=== PATIENT | male | born 1990 | race Caucasian/White ===

== ENCOUNTER 2017-08-07 22:30 | Emergency (ER) | payer SELFPAY ==
[~2017-08-07] VITALS: Ht 172.7 cm; Wt 68.2 kg
[2017-08-07 22:31] VITALS: BP 117/68
== END 2017-08-08 02:30 | disposition left against medical advice (07) ==
LOC: M ED 22:30
DX: L98.9 Disorder of the skin and subcutaneous tissue, unspecified (principal); Z53.21 Procedure and treatment not carried out due to patient leaving prior to being seen by health care provider

== ENCOUNTER 2017-12-19 14:53 | Emergency (ER) | payer SELFPAY ==
[2017-12-19] MEDS: AUGMENTIN 875 MG TAB PO (15:31)
[2017-12-19] MEDS: KETOROLAC 60 MG/2 ML VIAL (J1885) IM (15:31)
== END 2017-12-19 15:57 | disposition home or self-care (01) ==
LOC: M ED 14:53
DX: K05.319 Chronic periodontitis, localized, unspecified severity (principal); K02.9 Dental caries, unspecified; K05.10 Chronic gingivitis, plaque induced; Z79.899 Other long term (current) drug therapy
CPT/HCPCS: J1885

== ENCOUNTER 2018-11-25 19:54 | Emergency (ER) | payer OTHER, SELFPAY ==
[~2018-11-25] VITALS: Ht 172.7 cm; Wt 84.1 kg
[~2018-11-25 19:54] MED LIST: CLEO300C2 PO; IBUP-1114 PO; NAPR-837 PO; suboxone PO
[2018-11-25] MEDS ORDERED: AMPICILLIN SOD/SULBACTAM SOD 3 GM in D5W MINI-BAG PLUS 100 ML IV ONE (23:00)
[2018-11-25 23:20] LABS: HEMATOCRIT 43.8 % (42.0-52.0); HEMOGLOBIN 14.9 g/dl (13.5-17.5); MEAN CORPUSCULAR HEMOGLOBIN 30.3 pg (27.0-33.0); PLATELET COUNT, AUTOMATED 248 10^3/uL (150-450); RED BLOOD COUNT 4.92 10^6/uL (4.30-6.10)
[2018-11-25 23:40] LABS: BLOOD UREA NITROGEN 8 MG/DL (7-18); C REACTIVE PROTEIN QUANTITATIV 2.27 MG/DL (0.00-0.30); CALCIUM LEVEL 8.4 MG/DL (8.5-10.1); CARBON DIOXIDE LEVEL 26 MEQ/L (21-32); CHLORIDE LEVEL 106 MEQ/L (98-107); CREATININE FOR GFR 0.77 MG/DL (0.70-1.30); GLOMERULAR FILTRATION RATE > 60.0 (>60); GLUCOSE, FASTING 93 MG/DL (70-100); POTASSIUM SERUM 4.1 MEQ/L (3.5-5.1); SODIUM LEVEL 137 MEQ/L (136-145)
[2018-11-25] MEDS ORDERED: AUGM875T28 PO (23:47)
[2018-11-25 23:56] VITALS: BP 116/68
== END 2018-11-26 00:09 | disposition home or self-care (01) ==
LOC: M ED 19:54
DX: K04.7 Periapical abscess without sinus (principal); K02.9 Dental caries, unspecified; Z72.0 Tobacco use

== ENCOUNTER → 2020-05-12 | Outpatient (CLI) | payer OTHER ==
[~2020-05-12] MED LIST changes: +AUGM875T28 PO; +METH5TA PO; +POTA20TA6 PO
[2020-05-12 14:16] LABS: HEMATOCRIT 39.1 % (42.0-52.0); HEMOGLOBIN 13.3 g/dl (13.5-17.5); MEAN CORPUSCULAR HEMOGLOBIN 29.8 pg (27.0-33.0); MEAN CORPUSCULAR VOLUME 87.7 fl (80.0-96.0); PLATELET COUNT, AUTOMATED 232 10^3/uL (150-450); RED BLOOD COUNT 4.46 10^6/uL (4.30-6.10)
[2020-05-12 14:59] LABS: ALBUMIN 3.7 GM/DL (3.2-5.2); ALT/SGPT 35 U/L (12-78); BILIRUBIN,TOTAL 0.3 MG/DL (0.2-1.0); BLOOD UREA NITROGEN 3 MG/DL (7-18); CALCIUM LEVEL 8.9 MG/DL (8.5-10.1); CARBON DIOXIDE LEVEL 35 MEQ/L (21-32); CHLORIDE LEVEL 99 MEQ/L (98-107); CREATININE FOR GFR 0.72 MG/DL (0.70-1.30); GLOMERULAR FILTRATION RATE > 60.0 (>60); GLUCOSE, FASTING 80 MG/DL (70-100); POTASSIUM SERUM 2.9 MEQ/L (3.5-5.1); SODIUM LEVEL 139 MEQ/L (136-145); TOTAL PROTEIN 7.2 GM/DL (6.4-8.2)
[2020-05-12 15:05] LABS: HEPATITIS B SURFACE ANTIGEN NEGATIVE (NEGATIVE)
[2020-05-12 15:33] LABS: HIV 1&2 SCREEN CENTAUR NEGATIVE (NEGATIVE)
[2020-05-12 19:34] LABS: HEPATITIS C VIRUS ABY INDEX > 11.0 INDEX (<0.8)
== END ==
LOC: M LAB 13:00
PROVIDERS: ATTEND Family Medicine
DX: F11.20 Opioid dependence, uncomplicated (principal)

== ENCOUNTER 2020-05-18 19:42 | Emergency (ER) | payer OTHER ==
[~2020-05-18] VITALS: Ht 177.8 cm; Wt 90.9 kg
[~2020-05-18 19:42] MED LIST changes: -METH5TA PO; -POTA20TA6 PO
[2020-05-18] MEDS ORDERED: METH5TA PO (19:50)
[2020-05-18 21:12] LABS: BLOOD UREA NITROGEN 3 MG/DL (7-18); CALCIUM LEVEL 8.9 MG/DL (8.5-10.1); CARBON DIOXIDE LEVEL 33 MEQ/L (21-32); CHLORIDE LEVEL 102 MEQ/L (98-107); CREATININE FOR GFR 0.72 MG/DL (0.70-1.30); GLOMERULAR FILTRATION RATE > 60.0 (>60); GLUCOSE, FASTING 84 MG/DL (70-100); SODIUM LEVEL 138 MEQ/L (136-145)
[2020-05-18] MEDS ORDERED: POTASSIUM CHLORIDE 10 MEQ SR TABLET PO ONE (21:30)
[2020-05-18 21:42] LABS: ALBUMIN 3.8 GM/DL (3.2-5.2); ALT/SGPT 35 U/L (12-78); BILIRUBIN,DIRECT 0.1 MG/DL (0.0-0.2); BILIRUBIN,TOTAL 0.2 MG/DL (0.2-1.0); T UPTAKE 33 % (33-40); THYROXINE (T4) 12.1 UG/DL (4.5-12.0); TOTAL PROTEIN 7.6 GM/DL (6.4-8.2)
[2020-05-18] MEDS ORDERED: POTA20TA6 PO (22:08)
[2020-05-18 22:57] VITALS: BP 130/84
== END 2020-05-18 22:58 | disposition home or self-care (01) ==
LOC: M ED 19:42
DX: E87.6 Hypokalemia (principal); E03.9 Hypothyroidism, unspecified; F19.10 Other psychoactive substance abuse, uncomplicated

== ENCOUNTER → 2020-06-06 | Outpatient (REF) | payer OTHER ==
[~2020-06-06] MED LIST changes: +METH5TA PO; +POTA20TA6 PO
[2020-06-06 18:29] LABS: BLOOD UREA NITROGEN 3 MG/DL (7-18); CARBON DIOXIDE LEVEL 31 MEQ/L (21-32); CHLORIDE LEVEL 103 MEQ/L (98-107); CREATININE FOR GFR 0.78 MG/DL (0.70-1.30); GLOMERULAR FILTRATION RATE > 60.0 (>60); GLUCOSE, FASTING 91 MG/DL (70-100); POTASSIUM SERUM 3.9 MEQ/L (3.5-5.1); SODIUM LEVEL 138 MEQ/L (136-145)
== END ==
LOC: M SFHCPLAZ 14:28
PROVIDERS: ATTEND Family Medicine
DX: E87.6 Hypokalemia (principal)

== ENCOUNTER → 2021-04-11 | Outpatient (CLI) | payer OTHER ==
[2021-04-11 18:16] LABS: HEMATOCRIT 41.3 % (42.0-52.0); HEMOGLOBIN 13.9 g/dl (13.5-17.5); MEAN CORPUSCULAR HGB CONC 33.7 g/dl (32.0-36.5); RED BLOOD COUNT 4.64 10^6/uL (4.30-6.10); WHITE BLOOD COUNT 8.2 10^3/uL (4.0-10.0)
[2021-04-11 19:45] LABS: ALBUMIN 3.3 GM/DL (3.2-5.2); ALT/SGPT 36 U/L (12-78); BILIRUBIN,TOTAL 0.4 MG/DL (0.2-1.0); BLOOD UREA NITROGEN 3 MG/DL (7-18); CALCIUM LEVEL 8.6 MG/DL (8.5-10.1); CARBON DIOXIDE LEVEL 34 MEQ/L (21-32); CHLORIDE LEVEL 103 MEQ/L (98-107); CREATININE FOR GFR 0.75 MG/DL (0.70-1.30); GLOMERULAR FILTRATION RATE > 60.0 (>60); GLUCOSE, FASTING 96 MG/DL (70-100); HEPATITIS B SURFACE ANTIGEN NEGATIVE (NEGATIVE); HIV 1&2 SCREEN CENTAUR NEGATIVE (NEGATIVE); POTASSIUM SERUM 3.6 MEQ/L (3.5-5.1); SODIUM LEVEL 139 MEQ/L (136-145); TOTAL PROTEIN 7.4 GM/DL (6.4-8.2)
[2021-04-11 19:47] LABS: GC DNA AMPLIFICATION NEGATIVE (NEGATIVE)
[2021-04-11 19:53] LABS: HEPATITIS C VIRUS ABY INDEX > 11.0 INDEX (<0.8)
--- NOTE | 2021-04-11 20:05 | ECGEPIP ---
[facility] Test Date: 2021-04-11 Pat Name: RICHARD KRISHNA Department: Room: - Gender: Male [employer]y Worker: rf : 1990 Requested By: Anoop Lopez Order Number: [id number] Reading MD: Panda Max Measurements Intervals [place] Rate: 62 P: 26 [place]: 156 QRS: 12 QRSD: 86 T: -2 QT: 438 QTc: 444 Interpretive Statements Undetermined rhythm T wave abnormality, consider anterior ischemia Baseline artifact Comparison tracing not on file Electronically Signed on 04-11-2021 20:05:19 EDT by Panda Max
== END ==
LOC: M LAB 17:15
PROVIDERS: ATTEND Family Medicine
DX: F11.20 Opioid dependence, uncomplicated (principal)

== ENCOUNTER → 2025-03-17 | Outpatient (CLI) | payer OTHER, SELFPAY ==
[~2025-03-17] MED LIST changes: +POTA-151 PO; -POTA20TA6 PO
[2025-03-17 16:16] LABS: PLATELET COUNT, AUTOMATED 288 10^3/uL (150-450)
[2025-03-17 16:50] LABS: HIV 1&2 SCREEN NEGATIVE (NEGATIVE)
[2025-03-17 17:20] LABS: ALT/SGPT 33 U/L (7.0-40); AST/SGOT 52 U/L (<34); CALCIUM LEVEL 8.8 MG/DL (8.5-10.1); CARBON DIOXIDE LEVEL 30 MMOL/L (20-31); CHLORIDE LEVEL 100 MMOL/L (98-107); CREATININE FOR GFR 0.87 MG/DL (0.70-1.30); GLOMERULAR FILTRATION RATE > 90.0 (>60); HEPATITIS C VIRUS ABY INDEX > 11.00 INDEX (<0.8); POTASSIUM SERUM 3.4 MMOL/L (3.5-5.1); SODIUM LEVEL 142 MMOL/L (136-145); Trichomonas vaginalis (AMP) NOT DETECTED (NEGATIVE)
[2025-03-17 17:43] LABS: GC DNA AMPLIFICATION NEGATIVE (NEGATIVE)
[2025-03-20 16:28] LABS: HCV RNA QUANTITATION <15 NOT DETECTED IU/mL (NOT DETECTED); HCV RNA log10 <1.18 NOT DETECTED Log IU/mL (NOT DETECTED)
== END ==
LOC: M PLALAB 14:08
PROVIDERS: ATTEND Family Medicine
DX: F11.20 Opioid dependence, uncomplicated (principal)